=== PATIENT | female | born 1940 | race Caucasian/White ===

== ENCOUNTER 2020-03-17 21:58 | Emergency (ER) | payer MEDICARE, OTHER ==
[~2020-03-17] VITALS: Ht 170.2 cm; Wt 61.2 kg
[2020-03-17] MEDS ORDERED: NACL 0.9% 500 ML IV SCH (22:00)
[2020-03-17 22:04] VITALS: BP 125/76
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
--- NOTE | 2020-03-17 22:20 | NUR ---
JOSE SAID TO HOLD OFF ON IV INSERTION. SAID HE WILL CHANGE BLOOD DRAW ORDERS.
--- NOTE | 2020-03-17 22:25 | NUR ---
PT AMBULATE TO RR WITH STEADY GAIT WITH ASSISTANCE
--- NOTE | 2020-03-17 22:41 | NUR ---
lab at bedside
[2020-03-17 22:51] LABS: BASOPHILS # (AUTO) 0.1 K/uL (0.00-0.22); BASOPHILS % (AUTO) 1.3 % (0.0-2.0); EOSINOPHILS # (AUTO) 0.3 K/uL (0-0.4); HEMATOCRIT 38.2 % (36-48); HEMOGLOBIN 12.4 g/dL (12.0-16.0); LYMPHOCYTES # (AUTO) 1.5 K/uL (2.5-16.5); LYMPHOCYTES % (AUTO) 35.8 % (20.5-51.1); MEAN CORPUSCULAR HEMOGLOBIN 31 pg (27-31); MEAN CORPUSCULAR HGB CONC 33 g/dL (33-37); MEAN CORPUSCULAR VOLUME 96.2 fL (80-94); MONOCYTES # (AUTO) 0.4 K/uL (0.8-1.0); NEUTROPHILS % (AUTO) 46.9 % (42.2-75.2); PLATELET COUNT (AUTO) 200 K/uL (140-450); RED BLOOD CELL COUNT(AUTO) 3.97 MIL/uL (4.20-5.40); WHITE BLOOD COUNT (AUTO) 4.2 K/uL (4.8-10.8)
--- NOTE | 2020-03-17 22:52 | NUR ---
EKG PERFORMED AT BEDSIDE. EKG READS SINUS RHYTHM @ 67
--- NOTE | 2020-03-17 22:55 | NUR ---
EMT PERFORMING EKG AT BEDSIDE
[2020-03-17 23:05] LABS: ALBUMIN 3.8 g/dL (3.4-5.0); ANION GAP 11.5 (8-16); ASPARTATE AMINOTRANSFERASE 17 U/L (15-37); CARBON DIOXIDE 27.5 mmol/L (21-32); CHLORIDE 109 mmol/L (98-107); CREATININE 0.8 mg/dL (0.6-1.3); GLUCOSE 115 mg/dL (74-106); SODIUM SERUM 144 mmol/L (136-145); TOTAL BILIRUBIN 0.2 mg/dL (0.0-1.0); UREA NITROGEN, BLOOD 14 mg/dL (7-18)
[2020-03-17 23:07] LABS: ACETAMINOPHEN < 0.5 ug/ml (10-30); SALICYLATE < 2.8 mg/dL (2.8-20.0)
--- NOTE | 2020-03-17 23:09 | NUR ---
JOSE VALDOVINOS AT BEDSIDE
[2020-03-17 23:50] LABS: BARBITURATE, URINE NEGATIVE ng/ml (NEG <=200); BENZODIAZEPINE, URINE NEGATIVE ng/mL (NEG <=200); CANNABINOID, URINE NEGATIVE ng/mL (NEG <=50); COCAINE, URINE NEGATIVE ng/mL (NEG <=300); OPIATE, URINE NEGATIVE ng/mL (NEG <=2000); PHENCYCLIDINE SCREEN,URINE NEGATIVE ng/mL (NEG <=25)
--- NOTE | 2020-03-18 01:46 | NUR ---
PT RESTING IN BED. EQUAL CHEST RISE AND FALL, RR EVEN AND UNLABORED. CARIAC MONITOR IN PLACE. ALL PT NEEDS MET AT THIS TIME.
--- NOTE | 2020-03-18 03:46 | NUR ---
PT RESTING IN BED. EQUAL CHEST RISE AND FALL, RR EVEN AND UNLABORED. CARIAC MONITOR IN PLACE. ALL PT NEEDS MET AT THIS TIME.
--- NOTE | 2020-03-18 04:43 | NUR ---
CALLED DISTRIBUTED [employer] CONSULTANT [employer] IN ORDER TO OBTAIN A TAXI VOUCHER FOR PT. PT IS NOW A&O X4 AND ABLE TO VERBALIZE HOME ADDRESS. PT IS AMBULATING WITH STEADY GAIT.
--- NOTE | 2020-03-18 04:48 | NUR ---
CALLED [employer] TO OBTAIN A RIDE FOR PT WITH TAXI VOUCHER. ETA IS 1 HOUR AND 30 MIN.
[2020-03-18 05:00] VITALS: BP 103/58
--- NOTE | 2020-03-18 05:00 | NUR ---
Patient discharged with v/s stable. Written and verbal after care instructions given and explained. Patient verbalized understanding. Ambulatory with to TAXI. All questions addressed prior to discharge. Advised to follow up with PMD.
== END 2020-03-18 05:00 | disposition home or self-care (01) ==
LOC: MED 21:58
DX: R41.82 Altered mental status, unspecified (principal); Z98.890 Other specified postprocedural states
CPT/HCPCS: 36415; 80053; 80305; 85025; 87426; 93005; 99284; G0480; G0482

== ENCOUNTER 2020-06-09 15:51 | Emergency (ER) | payer MEDICARE ==
[~2020-06-09] VITALS: Ht 165.1 cm; Wt 81.6 kg
--- NOTE | 2020-06-09 15:55 | NUR ---
PT TO ED BED 11 VIA ROHITH
--- NOTE | 2020-06-09 16:05 | NUR ---
ERPA ALVAREZ AT BEDSIDE
[2020-06-09] MEDS ORDERED: NACL 0.9% 1,000 ML IV ONE (16:15)
--- NOTE | 2020-06-09 16:15 | NUR ---
PT ATTEMPTING TO LEAVE ED BED 11
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
--- NOTE | 2020-06-09 16:35 | NUR ---
PT REFUSED FOR ASSOCIATE PROFESSOR PHYSICIAN TO WITHDRAW BLOOD LABS AT THIS TIME
--- NOTE | 2020-06-09 17:06 | NUR ---
BLOOD LABS COLLECTED AND WALKED OVER TO LAB BY TONG EMT
[2020-06-09 17:15] LABS: BASOPHILS # (AUTO) 0.1 K/uL (0.00-0.22); EOSINOPHILS # (AUTO) 0.2 K/uL (0-0.4); EOSINOPHILS % (AUTO) 4.8 % (0.0-4.0); HEMATOCRIT 34.7 % (36-48); HEMOGLOBIN 11.5 g/dL (12.0-16.0); LYMPHOCYTES # (AUTO) 1.5 K/uL (2.5-16.5); LYMPHOCYTES % (AUTO) 32.8 % (20.5-51.1); MEAN CORPUSCULAR HEMOGLOBIN 32 pg (27-31); MEAN CORPUSCULAR HGB CONC 33 g/dL (33-37); MEAN CORPUSCULAR VOLUME 95.4 fL (80-94); MONOCYTES # (AUTO) 0.3 K/uL (0.8-1.0); MONOCYTES % (AUTO) 6.6 % (1.7-9.3); NEUTROPHILS # (AUTO) 2.5 K/uL (1.8-7.7); NEUTROPHILS % (AUTO) 53.8 % (42.2-75.2); PLATELET COUNT (AUTO) 196 K/uL (140-450); RED BLOOD CELL COUNT(AUTO) 3.64 MIL/uL (4.20-5.40); RED CELL DISTRIBUTION WIDTH 13.4 % (11.6-13.7); WHITE BLOOD COUNT (AUTO) 4.6 K/uL (4.8-10.8)
--- NOTE | 2020-06-09 17:55 | NUR ---
PT IS TRYING TO LEAVE HER BED, RE-DIRECTED BACK TO ED BED 11
[2020-06-09 17:56] LABS: ALBUMIN 3.9 g/dL (3.4-5.0); ANION GAP 15.3 (8-16); ASPARTATE AMINOTRANSFERASE 21 U/L (15-37); CARBON DIOXIDE 23.7 mmol/L (21-32); CHLORIDE 108 mmol/L (98-107); CREATININE 0.6 mg/dL (0.6-1.3); GLUCOSE 99 mg/dL (74-106); SODIUM SERUM 143 mmol/L (136-145); TOTAL BILIRUBIN 0.2 mg/dL (0.0-1.0); UREA NITROGEN, BLOOD 11 mg/dL (7-18)
--- NOTE | 2020-06-09 18:05 | NUR ---
PT RE-DIRECTED BACK TO ED BED 11 JOSE MADE AWARE OF PT ATTEMPTING TO LEAVE AMA
--- NOTE | 2020-06-09 18:07 | NUR ---
PT BECOMING PHYSICALLY AGGRESSIVE HITTING AND SHOUTING AT STAFF MEMBERS WHEN RE-DIRECTING BACK TO ED BED 11.
--- NOTE | 2020-06-09 18:10 | NUR ---
Physician order given to place velcro hard type restraints to upper and lower extremitis to prevent the patient from leaving without proper observation and assistance from medical staff. Resraints placed with quick-release ties to bed frame. Pt under observation within view of the nursing station.
--- NOTE | 2020-06-09 19:10 | NUR ---
pt being monitored with restraints. pt is shouting. pt is being verbally abusive to medical staff. ERMD made aware. bed is locked and in lowest position. side rails x2 for pt protection.
--- NOTE | 2020-06-09 19:20 | NUR ---
PHYSICAL RESTRAINTS REMOVED. SKIN IS INTACT. PT IS CALM AND STATED SHE WILL STOP YELLING AND HITTING.
--- NOTE | 2020-06-09 19:30 | NUR ---
unable to obtain urine specimens due to pt urinating on self
[2020-06-09 19:55] VITALS: BP 145/68
--- NOTE | 2020-06-09 19:55 | NUR ---
Patient discharged with v/s stable. Written and verbal after care instructions given and explained. Patient verbalized understanding. Ambulatory with steady gait. All questions addressed prior to discharge. Advised to follow up with PMD.
== END 2020-06-09 19:55 | disposition home or self-care (01) ==
LOC: MED 15:51
DX: F10.129 Alcohol abuse with intoxication, unspecified (principal)
CPT/HCPCS: 36415; 80053; 85025; 96360; 99283; G0482; J7030